=== PATIENT | male | born 1990 | race Caucasian/White ===

== ENCOUNTER 2020-03-16 08:16 | Emergency (ER) | payer OTHER ==
[~2020-03-16] VITALS: Ht 172.7 cm; Wt 63.5 kg
[2020-03-16] MEDS ORDERED: LIDOCAINE HCL/PF 1% 30 ML SDV ONE (08:48)
[2020-03-16] MEDS ORDERED: TDAP [DIPH/PERTUSSIS/TET] 0.5 ML VIAL IM ONE (09:00)
[2020-03-16] MEDS ORDERED: LIDOCAINE HCL/PF 1% 30 ML VIAL TP ONE (09:00)
--- NOTE | 2020-03-16 09:35 | NUR ---
LACERATION REPAIR DONE. TOLERATED WELL. PROVIDED W/ WOUND DRESSING. DISCHARGE HOME STABLE CONDITION.
[2020-03-16 09:37] VITALS: BP 135/79
== END 2020-03-16 09:37 | disposition home or self-care (01) ==
LOC: ER 08:20
DX: S61.412A Laceration without foreign body of left hand, initial encounter (principal); W26.8XXA Contact with other sharp object(s), not elsewhere classified, initial encounter; Y93.89 Activity, other specified; Y92.89 Other specified places as the place of occurrence of the external cause; Y99.8 Other external cause status
CPT/HCPCS: 12002; 99282; J3490 ×2

== ENCOUNTER 2020-03-31 09:56 | Emergency (ER) | payer OTHER ==
[~2020-03-31] VITALS: Ht 172.7 cm; Wt 63.5 kg
[2020-03-31 10:01] VITALS: BP 153/91
[2020-03-31] MEDS ORDERED: BENZOIN COMPOUND TINCT 60 ML BOTTLE ONE (10:20)
--- NOTE | 2020-03-31 10:21 | NUR ---
EMT AT BEDSIDE FOR STERI STRIP AND WRIST SPLINT
--- NOTE | 2020-03-31 10:22 | NUR ---
Patient discharged to home in stable condition. Written and verbal after care instructions given. Patient verbalizes understanding of instruction. Pt ambulatory with a steady gait
== END 2020-03-31 10:51 | disposition home or self-care (01) ==
LOC: ER 10:02
DX: S61.012D Laceration without foreign body of left thumb without damage to nail, subsequent encounter (principal); X58.XXXD Exposure to other specified factors, subsequent encounter